=== PATIENT | female | born 1970 | race African-American/Black ===

== ENCOUNTER → 2020-07-19 17:26 | Outpatient (CLI) | payer OTHER, SELFPAY ==
--- NOTE | ~2020-07-19 | MM_ITS ---
EXAMINATION: MM screening [facility] w jazmin HISTORY: Screening TECHNIQUE: Craniocaudal and mediolateral oblique 3-D tomosynthesis images were obtained and synthetic 2-D images were generated. CAD analysis was submitted and interpreted. COMPARISON: No prior mammogram is available for comparison at this institution. BREAST PARENCHYMAL COMPOSITION: There are scattered areas of fibroglandular density. FINDINGS: There is focal asymmetry in the upper central aspect of the right breast, middle third. The re are benign vascular calcifications. There is no mammographic evidence for malignancy in the left b reast. IMPRESSION: 1. Focal right breast asymmetry, upper central breast, middle third. 2. Additional mammographic views and possible breast ultrasound are recommended. BI-RADS Category 0: Incomplete: Needs additional imaging evaluation. Reviewed, dictated and finalized at location A. IMPRESSION: 1. Focal right breast asymmetry, upper central breast, middle third. 2. Additional mammographic views and possible breast ultrasound are recommended . BI-RADS Category 0: Incomplete: Needs additional imaging evaluation.
== END ==
PROVIDERS: PCP Nurse Practitioner Family; Visit Provider Nurse Practitioner Family
DX: Z12.31 Encounter for screening mammogram for malignant neoplasm of breast (principal); R92.8 Other abnormal and inconclusive findings on diagnostic imaging of breast
CPT/HCPCS: 77063; 77067

== ENCOUNTER → 2022-05-09 08:59 | Outpatient (CLI) | payer OTHER, SELFPAY ==
--- NOTE | ~2022-05-09 | MM_ITS ---
EXAMINATION: MM screening [facility] BI w jazmin HISTORY: Screening TECHNIQUE: Craniocaudal and mediolateral oblique 3-D tomosynthesis images were obtained and synthetic 2-D images were generated. CAD analysis was submitted and interpreted. COMPARISON: Comparison to multiple prior studies sequentially, with oldest reviewed study dated 11/2015. BREAST PARENCHYMAL COMPOSITION: There are scattered areas of fibroglandular density. FINDINGS: There is no evidence of suspicious mass, calcification, or architectural distortion to sugg est malignancy in either breast. There has been no suspicious interval change. IMPRESSION: 1. No mammographic evidence of malignancy. 2. Recommend routine screening mammography in one year. BI-RADS Category 1: Negative Reviewed, dictated and finalized at location A. D UNDERWRITER
== END ==
PROVIDERS: PCP Nurse Practitioner Family; Visit Provider Nurse Practitioner Family
DX: Z12.31 Encounter for screening mammogram for malignant neoplasm of breast (principal)
CPT/HCPCS: 77063; 77067

== ENCOUNTER 2022-08-07 11:11 | Observation (INO) | payer OTHER, SELFPAY ==
[2022-08-07] VITALS (26 sets, daily range): BP systolic 157–250; BP diastolic 108–184; PULSE 72–116; RESP 14–20; TEMP 36.4–37; O2SAT 95–100; BMI 29.7
--- NOTE | ~2022-08-07 | US_ITS ---
EXAMINATION: US retroperitoneal duplex ltd DATE: 08/08/2022 13:04 INDICATION: Severe hypertension TECHNIQUE: Multiple grayscale, color Doppler, and pulsed Doppler images of the kidneys and renal shakir sugey were obtained. COMPARISON: None. FINDINGS: There is normal renal contour and echogenicity bilaterally. The right kidney measures 9.7 x 4.6 x 4.9 cm and the left 10.0 x 5.5 x 5.0 cm. There are no focal renal lesions identified. There is no hydr onephrosis. The aorta peak systolic velocity is 105 cm/s. The right renal artery peak systolic veloci ty is 139 cm/s in the proximal segment, 117 cm/s in the mid segment, and 81 cm/s in the distal segmen t. The left renal artery peak systolic velocity is 126 cm/s in the proximal segment, 83 cm/s in the m id segment, and 104 cm/s in the distal segment. IMPRESSION: 1. No Doppler evidence of renal artery stenosis. 2. Normal bilateral kidneys with no hydronephrosis. Reviewed, dictated and finalized at location A.
--- NOTE | ~2022-08-07 | CT_ITS ---
EXAMINATION: CT brain wo con DATE: 08/07/2022 16:09 INDICATION: Hypertension. TECHNIQUE: Computed tomography (CT) of the head was performed without intravenous contrast. The mA wa s adjusted according to patient size. Iterative reconstruction technique was employed. The dose-lengt h product was 605.33 mGy-cm. COMPARISON: None FINDINGS: There is no intracranial hemorrhage, acute infarction, or abnormal intracranial mass lesion . The ventricles are normal in size. There is mild mucosal thickening in the ethmoid sinuses. The mas toid air cells are normal. The orbits are normal. IMPRESSION: 1. Normal brain. Reviewed, dictated and finalized at location E. IMPRESSION: 1. Normal brain.
--- NOTE | ~2022-08-07 | XR_ITS ---
EXAMINATION: XR chest 1V portable DATE: 08/07/2022 18:48 INDICATION: Hypertension. TECHNIQUE: A single frontal view of the chest was obtained. COMPARISON: None. FINDINGS: The lung volumes are small. There is mild atelectasis at the lung bases. No pleural effusio n or pneumothorax. The heart size is normal. IMPRESSION: 1. Small lung volumes with mild atelectasis at the lung bases. Reviewed, dictated and finalized at location E.
--- NOTE | 2022-08-07 15:28 | ECG_ITS ---
Measurements Intervals [place] Rate: 78 P: 46 PA: 158 QRS: 19 QRSD: 81 T: 40 QT: 388 QTc: 442 Interpretive Statements SINUS RHYTHM LEFT ATRIAL ENLARGEMENT [-0.15mV P WAVE IN V1/V2] NO PREVIOUS ECG AVAILABLE FOR COMPARISON Electronically Signed On 08-08-2022 12:06:00 CDT by Nicolas Higgins M.D.
[2022-08-07] MEDS: niCARdipine 20 MG/200 ML 20 MG/200 ML BAG 50 MG IV CONT (15:56)
[2022-08-07 16:05] LABS: Eosinophils Absolute Auto 0.1 K/mm3 (0-0.3); Eosinophils Percent Auto 1.4 % (0-4.4); Hematocrit 43.3 % (37.0-47.0); Hemoglobin 14.5 g/dL (12.0-15.0); Immature Granulocyte Absolute 0.01 K/mm3 (0.00-0.031); Immature Granulocyte Percent A 0.2 % (0-0.5); Lymphocytes Absolute Auto 1.63 K/mm3 (0.9-3.2); Lymphocytes Percent Auto 38.8 % (18.3-44.2); Mean Corpuscular HGB Conc 33.5 g/dl (32-36); Mean Corpuscular Hemoglobin 25.3 pg (26-34); Mean Corpuscular Volume 75.4 fl (80-100); Monocytes Absolute Auto 0.4 K/mm3 (0.1-0.6); Monocytes Percent Auto 9.5 % (2.6-8.5); Neutrophils Absolute Auto 2.1 K/mm3 (1.3-6.7); Neutrophils Percent Auto 49.1 % (45.5-73.1); Platelet Count Result 247 k/mm3 (150-375); Red Blood Count 5.74 M/mm3 (4.2-5.4); Red Cell Distribution Width 16.6 % (11.5-14.5); White Blood Count 4.2 K/mm3 (4.5-10.0)
[2022-08-07 16:11] LABS: Appearance Urine Cloudy (Clear); Bacteria Urine Rare /hpf; Bilirubin Urine Negative (Negative); Blood Urine Negative (Negative); Color Urine Yellow (Yellow); Glucose Urine UA Negative (Negative); Ketones Urine Trace mg/dL (Negative); Leukocyte Esterase Ur Trace LEU/UL (Negative); Nitrate Urine Negative (Negative); Non Pathogenic Casts 0-2; Protein Urine Negative (Negative); RBC Urine 0-2 /hpf (0-2); Specific Grav Ur 1.015 (1.001-1.035); Squamous Epithelial Cell Urine Few /hpf (Few); WBC Urine 0-5 /hpf; pH Urine 7.5 (5.0-9.0)
[2022-08-07 16:18] LABS: Alanine Aminotransferase 34 U/L (6-35); Albumin Level 4.3 g/dL (3.5-5.1); Alkaline Phosphatase 78 U/L (38-126); Anion Gap 5 mmol/L (8-16); Aspartate Amino Transferase 37 U/L (14-36); Bilirubin,Total 0.6 mg/dL (0.2-1.3); Blood Urea Nitrogen 11 mg/dL (7-17); Carbon Dioxide 29 mmol/L (22-30); Chloride 100 mmol/L (98-107); Estimated CRCL calculation 113 ml/min; Estimated Glomerular Filt Rate > 60; Glucose 79 mg/dL (65-110); Potassium 3.8 mmol/L (3.4-5.0); Sodium 134 mmol/L (137-145)
[2022-08-07 16:27] LABS: Troponin I < 0.012 ng/mL (0.000-0.034)
[2022-08-07 16:33] LABS: Add Urine Microscopic? YES
--- NOTE | 2022-08-07 17:04 | ED.GENADULT ---
HPI - General Adult General Chief complaint: Recheck/Abnormal Lab/Rx Stated complaint: high BP in [facility] Office. referred here Time Seen by Provider: 08/07/22 15:12 History of Present Illness HPI narrative: 52-year-old female presented to the emergency department for evaluation of high blood pressure. Patient states that she does not often take her olmesartan/ hydrochlorothiazide. She states she maybe takes it every other day and has not taken it since Wednesday. Patient states she does not typically check her blood pressure. Patient does report borderline high cholesterol but is not currently on cholesterol medications. Patient is not diabetic. Patient went to an FITNESS COORDINATOR follow-up appointment today and was found to have elevated blood pressure with a systolic around 200. Upon arrival to the emergency department patient's blood pressure was 250/150. Patient denies any complaints with this. Related Data Allergies Allergy/AdvReac Type Severity Reaction Status Date / Time No Known Allergies Allergy Unknown Verified 08/07/22 11:22 Review of Systems Review of Systems: All systems reviewed & are unremarkable except as noted in HPI and below PMFSH Past Medical History Medical History (Updated 08/07/22 @ 18:37 by Silas Valentin MD) History of x2 History of x2 Hypertension Surgical History Surgical History (Updated 08/07/22 @ 11:25 by Scarlett Duarte MA) History of section Family History Family History (Updated 08/07/22 @ 11:27 by Scarlett Duarte MA) Father Malignant neoplasm of prostate Diabetes mellitus Hypertension Other Hypertension Sibling Diabetes mellitus Grandparent Diabetes mellitus Maternal and paternal grandmother and grandfather Hypertension Social History Social History Smoking status: Smoker, status unknown Exam Narrative: APPEARANCE: Well appearing, no pain, no distress, well-nourished. HEAD: normocephalic, atraumatic. EYES: PERRLA/EOMI, conjunctivae clear. NOSE: Normal no drainage NECK: Supple. No adenopathy, no masses. RESPIRATORY: Airway patent, respirations nonlabored. Clear to auscultation bilaterally, no rales, rhonchi, wheezing. CARDIOVASCULAR: Regular rate and rhythm without murmurs rubs or gallops. ABDOMINAL: Soft, nontender, nondistended, normal bowel sounds MUSCULOSKELETAL: Moves all extremities. Strength/ROM intact, No edema, No calf tenderness. NEURO: Alert. Cranial nerves II through XII intact. Grossly intact SKIN: Warm, dry. Normal Color Course Course Emergency Course: 52-year-old female presenting to the emergency department with a blood pressure of 250/150. This blood pressure was confirmed bilaterally and by multiple measurements. Patient was started on Cardene drip at 5 mg/h. With a goal of 180 systolic. Patient was also started on p.o. Norvasc and p.o. lisinopril. Case was discussed with Dr. Palacio the armature winder helper repair and patient was accepted to the ICU. Hospitalist was paged regarding the admission. Patient was updated on the plan for admission and treatment. All questions concerns were addressed and patient was comfortable with the plan for admission. Patient had a negative head CT, EKG showed normal sinus rhythm with no evidence of acute STEMI. Patient had a negative troponin. UA shows no proteinuria. Vital Signs Vital signs: Vital Signs Temperature 97.5 F L 08/07/22 11:13 Pulse Rate 86 08/07/22 11:13 Respiratory Rate 20 08/07/22 11:13 Blood Pressure 160/117 H 08/07/22 11:13 Pulse Oximetry 98 08/07/22 11:13 Oxygen Delivery Room Air 08/07/22 11:13 Temperature 97.5 F L 08/07/22 11:13 Pulse Rate 106 H 08/07/22 17:16 Respiratory Rate 16 08/07/22 17:16 Blood Pressure 182/138 H 08/07/22 17:16 Pulse Oximetry 96 08/07/22 17:16 Oxygen Delivery Room Air 08/07/22 11:13 Medical Decision Making Vital Signs Vital Signs: Vital Signs Temperature 97.5 F L 08/07/22 11:
[2022-08-07] MEDS: amLODIPine BESYLATE 5 MG TABLET PO (17:49)
[2022-08-07] MEDS: lisinopriL 20 MG TABLET PO (17:49)
--- NOTE | 2022-08-07 20:42 | ADMGEN ---
This patient, Keyonna Bey, was admitted to Intensive Care Unit-4. Patient/family oriented to hospital policies and general routines including ID bracelet, bed and alarms, visiting hours, pain management, procedures, bathroom and other care routines, personal items, smoking policy, room service/diet, and visiting hours. Information on how to activate the Rapid Response Team has been discussed. Patient/Family are encouraged to report perceived risks to care and to ask questions if they do not understand what they are told or what they should do.
[2022-08-07] MEDS: ACETAMINOPHEN 325 MG TABLET 650 MG PO (22:01)
[2022-08-07] MEDS: LABETALOL HCL INJ 100 MG/20 ML VIAL 20 MG IV PUSH (22:12)
--- NOTE | 2022-08-07 23:28 | PM.IMHP ---
H&P: HPI History of Present Illness Date/Time: 08/07/22 19:30 Chief Complaint: Elevated blood pressures. Narrative: This is a pleasant 52-year-old female with hypertension who presented to the emergency department via private vehicle from her doctor's office for evaluation of elevated blood pressures. The patient provides the following history. She had a routine annual exam with her flat sorter processor today and her systolic blood pressures were well over 200 and she was directed to the ED. Since arrival her blood pressure has been as high as 250/147 and she has since been started on a nicardipine drip. Remarkably she is asymptomatic with that blood pressure. She has a prescription for olmesartan-hydrochlorothiazide for which she is intermittently compliant. It looks like she was prescribed 60 pills in April 2022 and she still has some remaining. Her last dose was on Wednesday I believe. She is not clear as to why she is not compliant with medications but she denies adverse side effects. At this time she has no complaints and she does specifically deny vertigo, visual changes, focal weakness, paresthesias, facial droop, difficulty speaking and swallowing, chest pain, shortness a breath, paroxysmal nocturnal dyspnea, lower extremity edema, nausea, vomiting, and sweats. Review of Systems Review of Systems: Twelve systems were reviewed and are negative except for as per HPI. [facility] Past Medical History Medical History (Updated 08/07/22 @ 23:36 by Vida Crain PA-C) Asthma Hypercholesterolemia Not currently on medication, being monitored. Hypertension Surgical History Surgical History History of section Family History Family History Father Malignant neoplasm of prostate Diabetes mellitus Hypertension Other Hypertension Sibling Diabetes mellitus Grandparent Diabetes mellitus Maternal and paternal grandmother and grandfather Hypertension Social History Social History (Updated 08/07/22 @ 23:34 by Vida Crain PA-C) Social History: Surrogate medical decision maker: Radha Burr (daughter) or Heidy Bey (mother). Code status: Full code. Smoking status: Never smoker Second hand tobacco smoke exposure: No Alcohol intake: current Drinks per week: 2 Substance use: never Substance use type: does not use Lack of Transportation: YES Lack of Food: Never True Current Housing: I Have Housing Concerned About Future Housing: No Difficulty Paying Gas/Electric Bills: No Difficulty Paying for Meds: No Currently Unemployed: No Education: Associate Degree Difficulty w/ Childcare or Family Care: No Additional living arrangements comments: Lives with family. Additional occupation/education comments: Works for [employer]. Spiritual care concerns: No Agree to blood products: Yes Meds Home Medications and Allergies Home Medications Medication Instructions Recorded Confirmed Type albuterol sulfate 90 mcg/actuation 2 puff inhalation Q4H PRN for cough 08/07/22 08/07/22 History aerosol inhaler multivitamin with minerals-folic 1 tablet PO DAILY 08/07/22 08/07/22 History acid 0.4 mg tablet olmesartan 20 1 tablet PO DAILY 08/07/22 08/07/22 History mg-hydrochlorothiazide 12.5 mg tablet Allergies Allergy/AdvReac Type Severity Reaction Status Date / Time No Known Allergies Allergy Unknown Verified 08/07/22 11:22 Vital Signs Vital Signs - 24 hr 08/07/22 11:13 08/07/22 15:56 08/07/22 15:40 Temperature 97.5 F L Pulse Rate 86 79 Respiratory Rate 20 Blood Pressure 160/117 H 243/150 H 250/144 H Pulse Oximetry 98 Oxygen Delivery Room Air 08/07/22 15:22 08/07/22 15:23 08/07/22 15:31 Temperature Pulse Rate 80 80 72 Respiratory Rate 16 16 14 Blood Pressure 250/147 H 234/148 H Pulse Oximetry 96 97
[2022-08-08] VITALS (10 sets, daily range): BP systolic 98–211; BP diastolic 78–110; PULSE 65–99; RESP 14–24; TEMP 36.5–36.9; O2SAT 93–100
[2022-08-08 04:05] LABS: Anion Gap 4 mmol/L (8-16); Blood Urea Nitrogen 15 mg/dL (7-17); Calcium 8.9 mg/dL (8.4-10.2); Carbon Dioxide 30 mmol/L (22-30); Chloride 103 mmol/L (98-107); Cholesterol 222 mg/dL (0-200); Estimated CRCL calculation 112 ml/min; Estimated Glomerular Filt Rate > 60; Glucose 95 mg/dL (65-110); HDL Direct 56 mg/dL; Magnesium 2.2 mg/dL (1.6-2.3); Potassium 3.8 mmol/L (3.4-5.0); Sodium 137 mmol/L (137-145); Triglycerides 71 mg/dL (<150)
[2022-08-08 04:15] LABS: LDL Cholesterol Direct 126 mg/dL
[2022-08-08 04:46] LABS: Hematocrit 42.3 % (37.0-47.0); Hemoglobin 14.1 g/dL (12.0-15.0); Mean Corpuscular HGB Conc 33.3 g/dl (32-36); Mean Corpuscular Hemoglobin 24.9 pg (26-34); Mean Corpuscular Volume 74.7 fl (80-100); Mean Platelet Volume 9.8 fl (7.4-10.4); Platelet Count Result 228 k/mm3 (150-375); Red Blood Count 5.66 M/mm3 (4.2-5.4); Red Cell Distribution Width 15.9 % (11.5-14.5); White Blood Count 4.1 K/mm3 (4.5-10.0)
--- NOTE | 2022-08-08 09:15 | WPDCNINT ---
Assessment and Plan Assessment and plan (1) Hypertensive crisis: Code(s): I16.9 - Hypertensive crisis, unspecified Status: Acute Assessment and Plan: Patient was started on nicardipine infusion in the ER which has been weaned off She was given a dose of lisinopril and Norvasc yesterday in the ER. Patient takes only start an and hydrochlorothiazide at home and I will resume does Continue p.r.n. labetalol Check echocardiogram and kidney Doppler ultrasound is ordered Patient was encouraged to remain compliant with her medications Plan DVT prophylaxis -SCDs Transfer out of ICU today Web Operations Manager Consult Note Consult date: 08/08/22 Reason for consult: Hypertensive urgency HPI: Keyonna Bey is a 52 year old female with past medical history of hypertension but noncompliance with medication and from her OBGYN office with high blood pressure. Patient went there for regular follow-up appointment and was found to be having blood pressure systolic above 200. She presented to ER and her systolic blood pressure was 250. Patient was mostly asymptomatic but was started on nicardipine infusion in the ER try to bring blood pressure close to systolic of 180. Patient was given Norvasc and lisinopril the ED. patient was then admitted to ICU for further evaluation management. Patient blood pressure improved and nicardipine was weaned off. This morning she states she feels fine and denies any specific complaints. Patient denies fever, chest pain, shortness of breath, cough, nausea vomiting, abdominal pain, diarrhea, headache or constipation. Patient states that she does have occasional headaches in the morning which she blamed on not sleeping well but currently denies at this time. She also complains of PND and intermittent swelling in her legs which she wears compression stocking. All other systems were reviewed and were negative Systolic blood pressure is now 140s sinus rhythm on the monitor Review of Systems Review of Systems: All systems reviewed & are unremarkable except as noted in HPI and below (HPI) [facility] Past Medical History Medical History Asthma Hypercholesterolemia Not currently on medication, being monitored. Hypertension Surgical History Surgical History History of section Family History Family History Father Malignant neoplasm of prostate Diabetes mellitus Hypertension Other Hypertension Sibling Diabetes mellitus Grandparent Diabetes mellitus Maternal and paternal grandmother and grandfather Hypertension Social History Social History Social History: Surrogate medical decision maker: Radha Burr (daughter) or Heidy Bey (mother). Code status: Full code. Smoking status: Never smoker Second hand tobacco smoke exposure: No Alcohol intake: current Drinks per week: 2 Substance use: never Substance use type: does not use Lack of Transportation: YES Lack of Food: Never True Current Housing: I Have Housing Concerned About Future Housing: No Difficulty Paying Gas/Electric Bills: No Difficulty Paying for Meds: No Currently Unemployed: No Education: Associate Degree Difficulty w/ Childcare or Family Care: No Additional living arrangements comments: Lives with family. Additional occupation/education comments: Works for [employer]. Spiritual care concerns: No Agree to blood products: Yes Meds Home Medications and Allergies Home Medications Medication Instructions Recorded Confirmed Type albuterol sulfate 90 mcg/actuation 2 puff inhalation Q4H PRN for cough 08/07/22 08/07/22 History aerosol inhaler multivitamin with minerals-folic 1 tablet PO DAILY 08/07/22 08/07/22 History acid 0.4 mg tablet olmesartan 20 1 tabl
[2022-08-08] MEDS: OLMESARTAN MEDOXOMIL 20 MG TABLET PO (09:30)
[2022-08-08] MEDS: hydroCHLOROthiazide 12.5 MG CAPSULE PO (09:30)
--- NOTE | 2022-08-08 10:45 | PC.NURSE ---
pt transferred in to room 261 via wheelchair, oriented to new room and environment, reviewed plan of care, pt resting comfortably, up in room independently
[2022-08-08] MEDS: LABETALOL HCL INJ 100 MG/20 ML VIAL 20 MG IV PUSH (12:13)
--- NOTE | 2022-08-08 13:13 | PM.IMPN ---
Progress Note: A&P Assessment and Plan (1) Hypertensive crisis: Code(s): I16.9 - Hypertensive crisis, unspecified Status: Acute Assessment and Plan: She is remarkably asymptomatic with blood pressures as high as 250/147. She is currently on a nicardipine drip which will be titrated per protocol. Goal systolic blood pressure over the next 24 hours or so is 170 to 180 systolic. Narrative: This is a pleasant 52-year-old female with hypertension who presented to the emergency department via private vehicle from her doctor's office for evaluation of elevated blood pressures. The patient provides the following history. She had a routine annual exam with her patient account analyst today and her systolic blood pressures were well over 200 and she was directed to the ED. Since arrival her blood pressure has been as high as 250/147 and she has since been started on a nicardipine drip. Remarkably she is asymptomatic with that blood pressure. She has a prescription for olmesartan-hydrochlorothiazide for which she is intermittently compliant. It looks like she was prescribed 60 pills in April 2022 and she still has some remaining. Her last dose was on Wednesday I believe. She is not clear as to why she is not compliant with medications but she denies adverse side effects. At this time she has no complaints and she does specifically deny vertigo, visual changes, focal weakness, paresthesias, facial droop, difficulty speaking and swallowing, chest pain, shortness a breath, paroxysmal nocturnal dyspnea, lower extremity edema, nausea, vomiting, and sweats. 08/08/2022 interval history: Upon arrival patient had emergently elevated blood pressure of 250/147 patient was started on a nicardipine drip which did bring blood pressure down and her home regimen with losartan and hydrochlorothiazide is resume, her blood pressure is trending, denies any chest pain shortness and breath or dizzy, to further evaluate we have ordered cardiac echo and kidney ultrasound and further recommendation to follow will continue to monitor. (2) Hypercholesterolemia: Code(s): E78.00 - Pure hypercholesterolemia, unspecified Status: Acute Assessment and Plan: According to patient she has high cholesterol which is being monitored. Check lipid levels in a.m. (3) Noncompliance: Code(s): Z91.199 - Patient's noncompliance with other medical treatment and regimen due to unspecified reason Status: Acute Assessment and Plan: Unclear why she is not compliant with her antihypertensives. We discussed the consequences she can expect should her blood pressure continued to go untreated including stroke, heart disease, kidney disease, etc.. She seems motivated and she will need to be restarted on oral antihypertensives once her blood pressures improve. Subjective Date/time seen: 08/08/22 13:13 Interval history: Elevated blood pressures. Narrative: This is a pleasant 52-year-old female with hypertension who presented to the emergency department via private vehicle from her doctor's office for evaluation of elevated blood pressures. The patient provides the following history. She had a routine annual exam with her patient account analyst today and her systolic blood pressures were well over 200 and she was directed to the ED. Since arrival her blood pressure has been as high as 250/147 and she has since been started on a nicardipine drip. Remarkably she is asymptomatic with that blood pressure. She has a prescription for olmesartan-hydrochlorothiazide for which she is intermittently compliant. It looks like she was prescribed 60 pills in April 2022 and she still has some remaining. Her last dose was on Wednesday I believe. She is not clear as to why she is not compliant with medications but she denies adverse side effects. At this time she has no complaints and she does specifically deny vertigo, visual changes, focal weakness, paresthesias, facial droop, difficulty speaking and
--- NOTE | 2022-08-08 23:38 | ECHO_ITS ---
Patient Info Name: Keyonna Bey Age: 52 years : 1970 Gender: Female Ht: 63 in Wt: 170 lbs BSA: 1.88 m2 HR: 78 bpm BP: 128 / 97 mmHg Heart Rhythm: Sinus Rhythm Technical Quality: Fair Exam Date: 08/08/2022 8:37 AM Exam Location: [facility] Pulmonary Exam Room: [facility] Patient Status: Outpatient Admit Date: 08/07/2022 Staff Ordering Physician: Vida Crain PA-C Print Operator: Zonia Harry RDCS Attending Provider: Ernesto Bryan MD Referring Physician: Paras SOUZA; Exam Type: CA echo doppler color flow Study Info Indications - SEVERE HYPERTENSION Complete two-dimensional, color flow and Doppler transthoracic echocardiogram is performed. Summary 1. Complete two-dimensional, color flow and Doppler transthoracic echocardiogram is performed. 2. Left ventricular chamber dimension is normal. 3. There is moderately increased left ventricular wall thickness. 4. Left ventricular systolic function is normal, estimated at 65-70%. 5. The left ventricular diastolic function is grade I diastolic dysfunction. 6. Right ventricular systolic function is normal. 7. No significant valvular disease. Left Ventricle Left ventricular chamber dimension is normal. Left ventricular systolic function is normal, estimated at 65-70%. There is moderately increased left ventricular wall thickness. The left ventricular diastolic function is grade I diastolic dysfunction. Right Ventricle Right ventricular chamber dimension is normal. Right ventricular systolic function is normal. Left Atria Left atrial chamber dimension is normal. Right Atria Right atrial chamber dimension is normal. Atrial Septum Intact interatrial septum visualized by color flow imaging. Aortic Valve The aortic valve is probable trileaflet. There is no aortic valve stenosis. There is no aortic valve regurgitation. Pulmonic Valve The pulmonic valve is normal. There is trace pulmonic regurgitation. Mitral Valve There is trace mitral valve regurgitation. Tricuspid Valve There is trace tricuspid valve regurgitation. Pericardium/Pleural There is no pericardial effusion. Inferior Vena Cava Normal inferior vena cava with <50% collapse upon inspiration. Aorta The aortic root size at the sinus of Valsalva is normal. Left Ventricular Outflow Tract Name Value Normal LVOT 2D LVOT Diameter 2.0 cm LVOT Doppler LVOT Peak Gradient 5 mmHg LVOT Mean Gradient 4 mmHg LVOT VTI 23 cm LVOT VTI/AV VTI Ratio 0.9 LVOT Stroke Volume 73 ml LVOT CO 17.9 l/min LVOT CI 9.5 l/min/m2 Pulmonic Valve Name Value Normal RVOT Doppler RVOT Peak Gradient 1 mmHg PV Doppler PV Pea
[2022-08-09 06:17] LABS: Hematocrit 43.1 % (37.0-47.0); Hemoglobin 14.5 g/dL (12.0-15.0); Mean Corpuscular HGB Conc 33.6 g/dl (32-36); Mean Corpuscular Hemoglobin 25.2 pg (26-34); Mean Corpuscular Volume 74.8 fl (80-100); Mean Platelet Volume 10.2 fl (7.4-10.4); Platelet Count Result 242 k/mm3 (150-375); Red Blood Count 5.76 M/mm3 (4.2-5.4); Red Cell Distribution Width 16.5 % (11.5-14.5); White Blood Count 3.7 K/mm3 (4.5-10.0)
[2022-08-09 06:26] LABS: Anion Gap 5 mmol/L (8-16); Blood Urea Nitrogen 20 mg/dL (7-17); Calcium 8.7 mg/dL (8.4-10.2); Carbon Dioxide 31 mmol/L (22-30); Chloride 100 mmol/L (98-107); Estimated CRCL calculation 95 ml/min; Estimated Glomerular Filt Rate > 60; Glucose 97 mg/dL (65-110); Potassium 3.8 mmol/L (3.4-5.0); Sodium 136 mmol/L (137-145)
[2022-08-09 07:00] VITALS: BP 151/109
[2022-08-09] MEDS: OLMESARTAN MEDOXOMIL 20 MG TABLET PO (08:05)
[2022-08-09] MEDS: hydroCHLOROthiazide 12.5 MG CAPSULE PO (08:05)
[2022-08-09 09:37] VITALS: BP 151/107
--- NOTE | 2022-08-09 12:26 | PM.DS ---
DS: Admitting Diagnosis Discharge Date 08/09/2022 Admitting Diagnosis Elevated blood pressure DS: Discharge Diagnosis Discharge Diagnosis (1) Hypertensive crisis: Code(s): I16.9 - Hypertensive crisis, unspecified Status: Acute Assessment and Plan: She is remarkably asymptomatic with blood pressures as high as 250/147. She is currently on a nicardipine drip which will be titrated per protocol. Goal systolic blood pressure over the next 24 hours or so is 170 to 180 systolic. Narrative: This is a pleasant 52-year-old female with hypertension who presented to the emergency department via private vehicle from her doctor's office for evaluation of elevated blood pressures. The patient provides the following history. She had a routine annual exam with her engineering systems analyst today and her systolic blood pressures were well over 200 and she was directed to the ED. Since arrival her blood pressure has been as high as 250/147 and she has since been started on a nicardipine drip. Remarkably she is asymptomatic with that blood pressure. She has a prescription for olmesartan-hydrochlorothiazide for which she is intermittently compliant. It looks like she was prescribed 60 pills in April 2022 and she still has some remaining. Her last dose was on Wednesday I believe. She is not clear as to why she is not compliant with medications but she denies adverse side effects. At this time she has no complaints and she does specifically deny vertigo, visual changes, focal weakness, paresthesias, facial droop, difficulty speaking and swallowing, chest pain, shortness a breath, paroxysmal nocturnal dyspnea, lower extremity edema, nausea, vomiting, and sweats. 08/08/2022 interval history: Upon arrival patient had emergently elevated blood pressure of 250/147 patient was started on a nicardipine drip which did bring blood pressure down and her home regimen with losartan and hydrochlorothiazide is resume, her blood pressure is trending, denies any chest pain shortness and breath or dizzy, to further evaluate we have ordered cardiac echo and kidney ultrasound and further recommendation to follow will continue to monitor. (2) Hypercholesterolemia: Code(s): E78.00 - Pure hypercholesterolemia, unspecified Status: Acute Assessment and Plan: According to patient she has high cholesterol which is being monitored. Check lipid levels in a.m. (3) Noncompliance: Code(s): Z91.199 - Patient's noncompliance with other medical treatment and regimen due to unspecified reason Status: Acute Assessment and Plan: Unclear why she is not compliant with her antihypertensives. We discussed the consequences she can expect should her blood pressure continued to go untreated including stroke, heart disease, kidney disease, etc.. She seems motivated and she will need to be restarted on oral antihypertensives once her blood pressures improve. DS: Summary Hospital Course Reason for hospitalization: Elevated blood pressures. Narrative: This is a pleasant 52-year-old female with hypertension who presented to the emergency department via private vehicle from her doctor's office for evaluation of elevated blood pressures. The patient provides the following history. She had a routine annual exam with her engineering systems analyst today and her systolic blood pressures were well over 200 and she was directed to the ED. Since arrival her blood pressure has been as high as 250/147 and she has since been started on a nicardipine drip. Remarkably she is asymptomatic with that blood pressure. She has a prescription for olmesartan-hydrochlorothiazide for which she is intermittently compliant. It looks like she was prescribed 60 pills in April 2022 and she still has some remaining. Her last dose was on Wednesday I believe. She is not clear as to why she is not compliant with medications but she denies adverse side effects. At this time she has no complaints and she does specifically d
== END 2022-08-09 13:44 | disposition home or self-care (01) ==
LOC: ANHED 18:37 → ANH2MED 08-09 12:26 → ANHICU 08-10 13:13
PROVIDERS: Physician Assistant; Admitting Provider Internal Medicine; Emergency Provider Emergency Medicine; PCP Nurse Practitioner Family; Visit Provider Family Medicine
DX: I16.0 Hypertensive urgency (principal); E78.00 Pure hypercholesterolemia, unspecified; Z91.199 Patient's noncompliance with other medical treatment and regimen due to unspecified reason; I51.89 Other ill-defined heart diseases; J98.11 Atelectasis; Z79.51 Long term (current) use of inhaled steroids; Z79.899 Other long term (current) drug therapy; Z82.49 Family history of ischemic heart disease and other diseases of the circulatory system
CPT/HCPCS: 36415; 70450; 71045; 80048; 80053; 80061; 81001; 83735; 84443; 84484; 85025; 85027; 93005; 93306; 93976; 96365; 96366; 96375; 99285; A9270; G0378

== ENCOUNTER 2022-10-02 01:00 | Day surgery (SDC) | payer OTHER, SELFPAY ==
[2022-09-24 08:33] VITALS: BMI 30.6
--- NOTE | 2022-10-01 12:29 | WPDANESEPPF ---
Anes - Initial Pre Proc Eval Procedure: Operation Date: 10/02/22 13:30 Proposed Procedures p Screening Colonoscopy - Pal Carvajal MD Date/Time: 10/01/22 12:29 Surgeon: Pal Carvajal MD Pre Op Diagnosis: neoplasm screening Patient Data Age: 52 Gender: F Height: 1.63 m Weight: 81 kg Allergies Allergy/AdvReac Type Severity Reaction Status Date / Time No Known Allergies Allergy Unknown Verified 10/02/22 12:40 Home Medications Medication Instructions Recorded Confirmed Type albuterol sulfate 90 mcg/actuation 2 puff inhalation Q4H PRN for cough 08/07/22 09/24/22 History aerosol inhaler multivitamin with minerals-folic 1 tablet PO DAILY 08/07/22 09/24/22 History acid 0.4 mg tablet olmesartan 20 1 tablet PO DAILY #30 tabs 08/09/22 09/24/22 Rx mg-hydrochlorothiazide 12.5 mg tablet Patient hx anesthesia problems: none Family hx anesthesia problems: none Results Review: All pre-operative results and documents have been reviewed as part of the pre-operative evaluation. [facility] Past Medical History Medical History Asthma Hypercholesterolemia Not currently on medication, being monitored. Hypertension Surgical History Surgical History History of section Family History Family History Father Malignant neoplasm of prostate Diabetes mellitus Hypertension Other Hypertension Sibling Diabetes mellitus Grandparent Diabetes mellitus Maternal and paternal grandmother and grandfather Hypertension Social History Social History Social History: Surrogate medical decision maker: Radha Burr (daughter) or Heidyeneida Bey (mother). Code status: Full code. Smoking status: Never smoker Second hand tobacco smoke exposure: No Alcohol intake: current Drinks per week: 1 Substance use: never Substance use type: does not use Lack of Transportation: YES Lack of Food: Never True Current Housing: I Have Housing Concerned About Future Housing: No Difficulty Paying Gas/Electric Bills: No Difficulty Paying for Meds: No Currently Unemployed: No Education: Associate Degree Difficulty w/ Childcare or Family Care: No Living arrangements: with family Additional living arrangements comments: Lives with family. Additional occupation/education comments: Works for [employer]. Spiritual care concerns: No Agree to blood products: Yes Anes - Evmagdiel Final PreProcedure Day of Procedure 10/01/22 12:29 Patient weight: obese Heart: regular rate and rhythm Lungs: clear to auscultation Airway: Mallampati scale class II Neurological: alert and oriented Last oral intake: >/= 8 hours ASA classification: III Emergent: no Anesthetic plan: proceed Anesthesia type and monitoring: general GIVS and standard monitoring Results Review: All pre-operative results and documents have been reviewed as part of the pre-operative evaluation. Informed Consent: The patient's anesthetic plan and its attendant risks and benefits were discussed with the patient/family/POA. Questions were solicited and answers provided to the satisfaction of the patient/family/POA.
--- NOTE | 2022-10-01 20:02 | PM.HPGS ---
History of Present Illness History of Present Illness Consent: Risks, benefits, and alternatives have been discussed and questions answered. Patient agrees to proceed with procedure. Chief complaint: neoplasm screening Narrative: Keoynna Bey is a 52 year old female who is referred for colon cancer screening. Review of Systems Review of Systems: All systems reviewed & are unremarkable except as noted in HPI and below PMFSH Past Medical History Medical History Asthma Hypercholesterolemia Not currently on medication, being monitored. Hypertension Surgical History Surgical History History of section Family History Family History Father Malignant neoplasm of prostate Diabetes mellitus Hypertension Other Hypertension Sibling Diabetes mellitus Grandparent Diabetes mellitus Maternal and paternal grandmother and grandfather Hypertension Social History Social History Social History: Surrogate medical decision maker: Radha Burr (daughter) or Heidy Bey (mother). Code status: Full code. Smoking status: Never smoker Second hand tobacco smoke exposure: No Alcohol intake: current Drinks per week: 1 Substance use: never Substance use type: does not use Lack of Transportation: YES Lack of Food: Never True Current Housing: I Have Housing Concerned About Future Housing: No Difficulty Paying Gas/Electric Bills: No Difficulty Paying for Meds: No Currently Unemployed: No Education: Associate Degree Difficulty w/ Childcare or Family Care: No Living arrangements: with family Additional living arrangements comments: Lives with family. Additional occupation/education comments: Works for [employer]. Spiritual care concerns: No Agree to blood products: Yes Meds Home Medications and Allergies Home Medications Medication Instructions Recorded Confirmed Type albuterol sulfate 90 mcg/actuation 2 puff inhalation Q4H PRN for cough 08/07/22 09/24/22 History aerosol inhaler multivitamin with minerals-folic 1 tablet PO DAILY 08/07/22 09/24/22 History acid 0.4 mg tablet olmesartan 20 1 tablet PO DAILY #30 tabs 08/09/22 09/24/22 Rx mg-hydrochlorothiazide 12.5 mg tablet Allergies Allergy/AdvReac Type Severity Reaction Status Date / Time No Known Allergies Allergy Unknown Verified 10/02/22 12:40 Exam Const: General: alert Orientation/consciousness: patient oriented x3 Resp: Auscultation: clear to auscultation bilaterally Cardio: Rhythm: regular rhythm GI: GI Palp: Yes Soft to palpation and No Tenderness to palpation present (GI) Neuro: General: patient oriented x3 Assessment and Plan Assessment and plan (1) Colon cancer screening: Code(s): Z12.11 - Encounter for screening for malignant neoplasm of colon Status: Acute Assessment and Plan: Colonoscopy with possible biopsy or polypectomy or cautery or injection of substances.
[2022-10-02 12:44] VITALS: BP 147/107; PULSE 92; RESP 20; TEMP 36.3; O2SAT 100; BMI 29.1
[2022-10-02] MEDS: LACTATED RINGERS 1,000 ML 150 ML IV CONT (12:54)
[2022-10-02] MEDS: SIMETHICONE ORAL SUSPENSION 20 MG/0.3 ML 30 ML BOTTLE 0.6 ML IRRIGATION (13:27)
[2022-10-02 13:38] VITALS: BP 110/60; PULSE 77; RESP 22; O2SAT 95
[2022-10-02 13:48] VITALS: BP 107/66; PULSE 74; RESP 22; O2SAT 99
[2022-10-02 13:58] VITALS: BP 117/72; PULSE 70; RESP 20; O2SAT 100
== END 2022-10-02 14:14 | disposition home or self-care (01) ==
PROVIDERS: PCP Nurse Practitioner Family; Visit Provider Internal Medicine Gastroenterology
PROC: 0DJD8ZZ Inspection of Lower Intestinal Tract, Via Natural or Artificial Opening Endoscopic (ICD-10-PCS; CPT 45378; principal; 2022-10-02 13:30)
DX: Z12.11 Encounter for screening for malignant neoplasm of colon (principal); I10 Essential (primary) hypertension; E78.00 Pure hypercholesterolemia, unspecified; J45.909 Unspecified asthma, uncomplicated
CPT/HCPCS: 45378; J2704; J7120